=== PATIENT | male | born 1990 | race Caucasian/White ===

== ENCOUNTER 2018-04-22 15:35 | Emergency (ER) | payer MEDICAID ==
[~2018-04-22] VITALS: Ht 170.2 cm; Wt 71.0 kg
[2018-04-22] MEDS ORDERED: IBUPROFEN 600MG TABLET PO ONE (19:00)
[2018-04-22 19:30] VITALS: BP 96/68
== END 2018-04-22 19:30 | disposition home or self-care (01) ==
LOC: ER 16:21
DX: M25.561 Pain in right knee (principal)
CPT/HCPCS: 73562; 99284

== ENCOUNTER 2018-05-23 21:57 | Emergency (ER) | payer SELFPAY ==
[~2018-05-23] VITALS: Ht 172.7 cm; Wt 57.0 kg
[2018-05-23] MEDS ORDERED: SODIUM CHLORIDE 0.9% 1,000 ML IV ONE (22:46)
[2018-05-23] MEDS ORDERED: MORPHINE SULFATE 4 MG/ML CPJ (NOT FOR IM USE) IV STA (22:46)
[2018-05-23] MEDS ORDERED: ONDANSETRON HCL 4MG/2ML VIAL IV STA (22:46)
[2018-05-23] MEDS ORDERED: KETOROLAC 30MG/ML VIAL IV ONE (23:45)
[2018-05-24 00:55] LABS: BASOPHILS % 0.1 % (0.0-2.0); HEMATOCRIT. 27.3 % (42.0-52.0); HEMOGLOBIN. 9.5 g/dL (14.0-18.0); LYMPHOCYTES % 27.8 % (20.0-50.0); MEAN CORPUSCULAR HEMOGLOBIN 31.6 pg (28.0-32.0); MEAN CORPUSCULAR VOLUME 90.7 fL (80.0-94.0); MEAN PLATELET VOLUME 8.6 fl (7.4-10.4); MONOCYTES % 4.2 % (2.0-8.0); NEUTROPHILS % 67.9 % (40.0-76.0); PLATELET 125 x1000/uL (130-400); RED BLOOD CELL COUNT 3.01 mill/uL (4.7-6.1); RED CELL DISTRIBUTION WIDTH 13.7 % (11.6-14.6)
[2018-05-24 01:02] LABS: CHLORIDE 112 mEq/L (98-107)
[2018-05-24 01:05] LABS: INR 1.1; PROTHROMBIN TIME 11.2 sec (9.1-11.1)
[2018-05-24] MEDS ORDERED: IOHEXOL-300 100 ML BOTTLE ONE (01:34)
[2018-05-24] MEDS ORDERED: MORPHINE SULFATE 4 MG/ML CPJ (NOT FOR IM USE) IV ONE (02:30)
[2018-05-24] MEDS ORDERED: ONDANSETRON HCL 4MG/2ML VIAL IV ONE (02:30)
[2018-05-24] MEDS ORDERED: FENTANYL CITRATE/PF 50MCG/ML 2ML VIAL IV ONE (03:15)
[2018-05-24] MEDS ORDERED: FENTANYL CITRATE/PF 50MCG/ML 2ML VIAL ONE (03:22)
[2018-05-24 03:46] VITALS: BP 99/54
== END 2018-05-24 05:10 | disposition short-term general hospital (02) ==
LOC: ER 22:33
DX: S36.039A Unspecified laceration of spleen, initial encounter (principal); S39.81XA Other specified injuries of abdomen, initial encounter; V00.131A Fall from skateboard, initial encounter; Y93.51 Activity, roller skating (inline) and skateboarding; Y92.89 Other specified places as the place of occurrence of the external cause
CPT/HCPCS: 36415; 71045; 71250; 74177; 80053; 85025; 85610; 86850; 86900; 86901; 86920; 96374; 96375; 96376; 99285; J1885; J2270; J2405; J3010; J7030; P9016; Q9967; Z7610